=== PATIENT | female | born 1960 | race Hispanic/Latino ===

== ENCOUNTER 2019-07-18 01:08 | Emergency (ER) | payer OTHER ==
[2019-07-18 01:41] LABS: BASOPHILS % (AUTO) 3.6 % (0.0-5.0); EOSINOPHILS % (AUTO) 0.8 % (0.0-8.0); HEMATOCRIT 40.1 % (36-48); LYMPHOCYTES % (AUTO) 25.6 % (21.0-51.0); MEAN CORPUSCULAR HEMOGLOBIN 30.8 pg (27.0-33.0); MEAN CORPUSCULAR HGB CONC 34.3 g/dL (32.0-36.0); MEAN CORPUSCULAR VOLUME 89.8 fL (79-99); MONOCYTES % (AUTO) 4.9 % (3.0-13.0); NEUTROPHILS % (AUTO) 65.1 % (40.0-77.0); PLATELET COUNT (AUTO) 197 K/uL (130-400); RED BLOOD CELL COUNT(AUTO) 4.47 MIL/uL (4.00-5.50); RED CELL DISTRIBUTION WIDTH 13.3 % (11.0-15.5)
[2019-07-18 01:50] LABS: CREATININE 0.8 mg/dL (0.5-1.5); POTASSIUM 3.4 mmol/L (3.5-5.1)
[2019-07-18 01:55] LABS: APPEARANCE,URINE Clear (CLEAR); BILIRUBIN,URINE Negative (NEGATIVE); COLOR,URINE Yellow (YELLOW); GLUCOSE, URINE (UA) Negative (NEGATIVE); KETONES,URINE Negative (NEGATIVE); LEUKOCYTE ESTERASE ,URINE Negative (NEGATIVE); NITRATE,URINE Negative (NEGATIVE); OCCULT BLOOD,URINE Negative (NEGATIVE); PROTEIN,URINE Negative (NEGATIVE); UROBILINOGEN,URINE 0.2 mg/dL (0.2-1.0)
[2019-07-18 01:55] LABS: BILIRUBIN,TOTAL 0.2 mg/dL (0.2-1.0); TOTAL PROTEIN, SERUM 7.7 g/dL (6.0-8.3)
[2019-07-18 02:11] LABS: INR 0.95 (0.85-1.15); PARTIAL THROMBOPLASTIN TIME 25.4 SEC (26.3-35.5)
[2019-07-18] MEDS ORDERED: LORAZEPAM 2 MG/ML 1 ML VIAL ONE (03:12)
== END 2019-07-18 07:35 | disposition home or self-care (01) ==
LOC: EDH 01:08
DX: S06.0X1A Concussion with loss of consciousness of 30 minutes or less, initial encounter (principal); I10 Essential (primary) hypertension; F32.9 Major depressive disorder, single episode, unspecified; F41.9 Anxiety disorder, unspecified; Z90.49 Acquired absence of other specified parts of digestive tract; Z90.710 Acquired absence of both cervix and uterus; W18.39XA Other fall on same level, initial encounter; Y93.41 Activity, dancing; Y92.89 Other specified places as the place of occurrence of the external cause; Y99.8 Other external cause status
CPT/HCPCS: 36415; 70450; 72125; 80053; 81003; 82550; 84484; 85025; 85610; 85730; 93005; 96374; 99285; G0480; J2060

== ENCOUNTER 2022-04-18 18:02 | Inpatient (IN) | payer OTHER ==
[~2022-04-18] VITALS: Ht 160 cm; Wt 95.3 kg
[2022-04-18 18:24] LABS: BASOPHILS % (AUTO) 0.5 % (0.0-5.0); EOSINOPHILS % (AUTO) 0.9 % (0.0-8.0); HEMATOCRIT 38.2 % (36-48); LYMPHOCYTES % (AUTO) 28.9 % (21.0-51.0); MEAN CORPUSCULAR HEMOGLOBIN 30.2 pg (27.0-33.0); MEAN CORPUSCULAR HGB CONC 35.6 g/dL (32.0-36.0); MEAN CORPUSCULAR VOLUME 84.9 fL (79-99); MONOCYTES % (AUTO) 7.5 % (3.0-13.0); NEUTROPHILS % (AUTO) 61.6 % (40.0-77.0); PLATELET COUNT (AUTO) 228 K/uL (130-400); RED CELL DISTRIBUTION WIDTH 13.2 % (11.0-15.5); WHITE BLOOD COUNT (AUTO) 12.5 K/uL (4.8-10.8)
[2022-04-18 18:43] LABS: ALBUMIN 3.9 g/dL (3.5-5.0); CREATININE 0.8 mg/dL (0.5-1.5); TOTAL PROTEIN, SERUM 7.6 g/dL (6.0-8.3)
[2022-04-18 18:45] LABS: POTASSIUM 2.9 mmol/L (3.5-5.1)
[2022-04-18] MEDS ORDERED: KCL 20 MEQ ERTAB PO ONE ×2 (18:53→19:00)
[2022-04-18 18:58] LABS: B-TYPE NATRIURETIC PEPTIDE 139 pg/mL (0-100)
[2022-04-18] MEDS ORDERED: ASPIRIN 81MG CHEW TAB PO ONE (19:00)
[2022-04-18 20:28] LABS: APPEARANCE,URINE CLEAR (CLEAR); BILIRUBIN,URINE NEGATIVE (NEGATIVE); COLOR,URINE YELLOW (YELLOW); GLUCOSE, URINE (UA) NEGATIVE (NEGATIVE); KETONES,URINE 5 mg/dL (NEGATIVE); LEUKOCYTE ESTERASE ,URINE NEGATIVE (NEGATIVE); NITRATE,URINE NEGATIVE (NEGATIVE); OCCULT BLOOD,URINE NEGATIVE (NEGATIVE); PROTEIN,URINE NEGATIVE (NEGATIVE); UROBILINOGEN,URINE 0.2 mg/dL (0.2-1.0)
[2022-04-18] MEDS ORDERED: HYDRALAZINE 20MG/ML VIAL ONE (21:16)
[2022-04-18] MEDS ORDERED: GUAIFENESIN-DM 200/20 MG 10 ML PO PRN (21:30)
[2022-04-18] MEDS ORDERED: ONDANSETRON 4MG INJ IV PRN (21:30)
[2022-04-18] MEDS ORDERED: HYDRALAZINE 20MG/ML VIAL IV PRN (21:30)
[2022-04-18] MEDS ORDERED: LACTULOSE 20 GM/30 ML UDCUP PO PRN (21:30)
[2022-04-18] MEDS ORDERED: ACETAMINOPHEN 325 MG TAB PO PRN (21:30)
[2022-04-18] MEDS ORDERED: DIPHENHYDRAMINE HCL 25 MG CAPSULE PO PRN (21:30)
[2022-04-18] MEDS ORDERED: ACETAMINOPHEN WITH CODEINE 1 TAB TAB PO PRN (21:30)
[2022-04-18] MEDS ORDERED: MAG/ALUM/SIMETH 30 ML UDCUP PO PRN (21:30)
[2022-04-18] MEDS ORDERED: NITROGLYCERIN 0.4 MG SL TAB SL PRN (21:30)
[2022-04-18 21:50] LABS: CHOLESTEROL 231 mg/dL (<200); HDL CHOLESTEROL 45 mg/dL (35-85); LDL DIRECT 143 mg/dL (0-99); TRIGLYCERIDES 167 mg/dL (30-200)
[2022-04-18] MEDS ORDERED: IOHEXOL 350 MG/ML 100ML INFUS..BTL IV ONE (21:50)
[2022-04-18 21:51] LABS: HEMOGLOBIN A1C 6.6 % (4.0-6.0)
[2022-04-18] MEDS ORDERED: DEXTROSE 50%-WATER 50 ML DISP.SYRIN IV PRN (22:00)
[2022-04-18] MEDS ORDERED: GLUCAGON 1MG KIT 1 MG ML IM PRN (22:00)
[2022-04-18] MEDS ORDERED: LIDOCAINE HCL-MPF 1% 2ML VIAL IV PRN (22:00)
[2022-04-18] MEDS ORDERED: POTASSIUM CHLORIDE 10% ELIXIR 20 MEQ/15 ML UDCUP PO PRN (22:00)
[2022-04-18] MEDS: POTASSIUM CHLORIDE 20MEQ/100ML 100 ML IV PRN (22:49)
[2022-04-19 00:50] VITALS: BP 140/77
[2022-04-19 04:00] VITALS: BP 128/55
[2022-04-19] MEDS: INSULIN HUMULIN R 100 UNIT/ML 3ML SQ SCH ×4 (06:13→21:00)
[2022-04-19 07:30] VITALS: BP 146/61
[2022-04-19 08:29] LABS: HEMATOCRIT 35.5 % (36-48); MEAN CORPUSCULAR HGB CONC 35.5 g/dL (32.0-36.0); MEAN CORPUSCULAR VOLUME 84.5 fL (79-99); PLATELET COUNT (AUTO) 222 K/uL (130-400); RED CELL DISTRIBUTION WIDTH 13.4 % (11.0-15.5); WHITE BLOOD COUNT (AUTO) 9.5 K/uL (4.8-10.8)
[2022-04-19 08:39] LABS: CREATININE 0.7 mg/dL (0.5-1.5); POTASSIUM 3.1 mmol/L (3.5-5.1)
[2022-04-19 08:44] LABS: ALBUMIN 3.4 g/dL (3.5-5.0); TOTAL PROTEIN, SERUM 6.8 g/dL (6.0-8.3)
[2022-04-19] MEDS: FAMOTIDINE 20MG VIAL IV SCH ×2 (09:04→20:10)
[2022-04-19 09:41] LABS: LYMPHOCYTES % (MANUAL) 37 % (22-44); MAN.DIFF COMMENT-IMPRESSION MANUAL DIFFERENTIAL; MONOCYTES % (MANUAL) 2 % (2-9); PLATELET MORPHOLOGY COMMENT ADEQUATE; SEGMENTED NEUTROPHILS % 61 % (40-70)
[2022-04-19] MEDS: POTASSIUM CHLORIDE 20MEQ/100ML 100 ML IV PRN (10:30)
[2022-04-19 11:00] VITALS: BP 156/88
[2022-04-19] MEDS: KCL 20 MEQ ERTAB PO PRN (15:43)
[2022-04-19 16:00] VITALS: BP 145/65
[2022-04-19] MEDS: FLUTICASONE PROPIONATE 50MCG/SPRAY 16 GM BOTTLE EN SCH ×2 (16:30→20:08)
[2022-04-19] MEDS: CETIRIZINE HCL 5 MG TABLET PO SCH (17:42)
[2022-04-19 20:00] VITALS: BP 158/81
[2022-04-19] MEDS: ATORVASTATIN 40 MG TABLET PO SCH (20:11)
[2022-04-19] MEDS: AMOX/CLAV 500/125MG TAB PO SCH (23:10)
[2022-04-20] VITALS (7 sets, daily range): BP systolic 120–141; BP diastolic 47–79
[2022-04-20] MEDS: AMOX/CLAV 500/125MG TAB PO SCH ×3 (06:02→21:42)
[2022-04-20] MEDS: INSULIN HUMULIN R 100 UNIT/ML 3ML SQ SCH ×4 (06:02→20:27)
[2022-04-20 06:13] LABS: BASOPHILS % (AUTO) 0.6 % (0.0-5.0); EOSINOPHILS % (AUTO) 1.7 % (0.0-8.0); LYMPHOCYTES % (AUTO) 34.6 % (21.0-51.0); MEAN CORPUSCULAR HEMOGLOBIN 29.9 pg (27.0-33.0); MEAN CORPUSCULAR HGB CONC 34.7 g/dL (32.0-36.0); MEAN CORPUSCULAR VOLUME 86.3 fL (79-99); MONOCYTES % (AUTO) 7.7 % (3.0-13.0); NEUTROPHILS % (AUTO) 55.2 % (40.0-77.0); PLATELET COUNT (AUTO) 233 K/uL (130-400); RED BLOOD CELL COUNT(AUTO) 3.94 MIL/uL (4.00-5.50); RED CELL DISTRIBUTION WIDTH 13.3 % (11.0-15.5)
[2022-04-20 06:25] LABS: CREATININE 0.7 mg/dL (0.5-1.5); POTASSIUM 3.5 mmol/L (3.5-5.1)
[2022-04-20] MEDS: KCL 20 MEQ ERTAB PO PRN (06:36)
[2022-04-20] MEDS: CETIRIZINE HCL 5 MG TABLET PO SCH (09:39)
[2022-04-20] MEDS: LISINOPRIL 40 MG TABLET PO SCH (09:40)
[2022-04-20] MEDS: FLUTICASONE PROPIONATE 50MCG/SPRAY 16 GM BOTTLE EN SCH ×2 (09:40→20:07)
[2022-04-20] MEDS: FAMOTIDINE 20MG VIAL IV SCH ×2 (09:40→20:07)
[2022-04-20] MEDS: ATORVASTATIN 40 MG TABLET PO SCH (20:07)
[2022-04-21 03:45] VITALS: BP 138/62
[2022-04-21 04:40] LABS: BASOPHILS % (AUTO) 0.5 % (0.0-5.0); EOSINOPHILS % (AUTO) 1.1 % (0.0-8.0); LYMPHOCYTES % (AUTO) 33.5 % (21.0-51.0); MEAN CORPUSCULAR HEMOGLOBIN 30.4 pg (27.0-33.0); MEAN CORPUSCULAR VOLUME 86.7 fL (79-99); MONOCYTES % (AUTO) 6.6 % (3.0-13.0); NEUTROPHILS % (AUTO) 57.7 % (40.0-77.0); PLATELET COUNT (AUTO) 227 K/uL (130-400); RED BLOOD CELL COUNT(AUTO) 3.92 MIL/uL (4.00-5.50); RED CELL DISTRIBUTION WIDTH 13.4 % (11.0-15.5)
[2022-04-21 04:43] LABS: CREATININE 0.8 mg/dL (0.5-1.5); MAGNESIUM 2.1 mg/dL (1.80-2.40); POTASSIUM 3.7 mmol/L (3.5-5.1)
[2022-04-21] MEDS: KCL 20 MEQ ERTAB PO PRN ×2 (05:27→06:38)
[2022-04-21] MEDS: AMOX/CLAV 500/125MG TAB PO SCH (05:27)
[2022-04-21 06:28] VITALS: BP 124/75
[2022-04-21] MEDS: INSULIN HUMULIN R 100 UNIT/ML 3ML SQ SCH ×2 (06:37→11:04)
[2022-04-21] MEDS: FLUTICASONE PROPIONATE 50MCG/SPRAY 16 GM BOTTLE EN SCH (09:01)
[2022-04-21] MEDS: FAMOTIDINE 20MG VIAL IV SCH (09:01)
[2022-04-21] MEDS: CETIRIZINE HCL 5 MG TABLET PO SCH (09:01)
[2022-04-21] MEDS: LISINOPRIL 40 MG TABLET PO SCH (09:02)
[2022-04-21 11:20] VITALS: BP 143/70
[2022-04-21] MEDS ORDERED: AMOX1TAB15 PO (12:22)
[2022-04-21] MEDS ORDERED: LISI40TA9 PO (12:22)
[2022-04-21] MEDS ORDERED: ATOR40TA69 PO (12:22)
== END 2022-04-21 14:00 | disposition home or self-care (01) | DRG 159 ==
LOC: EDH 18:02 → EDHIP 18:03 → 4DH 04-19 00:50
PROVIDERS: ADMIT Hospitalist; ATTEND Hospitalist
DX: K04.7 Periapical abscess without sinus (principal); E11.9 Type 2 diabetes mellitus without complications; E87.6 Hypokalemia; I10 Essential (primary) hypertension; F41.9 Anxiety disorder, unspecified; Z90.710 Acquired absence of both cervix and uterus
CPT/HCPCS: 36415; 70450; 70486; 70496; 70498; 70551; 71045; 80048; 80053; 80061; 81003; 82607; 82948; 83036; 83735; 83880; 84484; 85025; 92522; 92610; 93005; 93306; G0378; J0360; J3480; J3490; Q9967